=== PATIENT | male | born 1955 | race Caucasian/White ===

== ENCOUNTER → 2016-09-04 | Outpatient (CLI) | payer MEDICARE, OTHER ==
[~2016-09-04] MED LIST: ASPI1TAB72 PO; ASPI81TA2 PO; CARI350T26 PO; CEPH500T PO; CLON0.5T23 PO; CYCL-375 PO; DULO30CA52 PO; GABA-215 PO; IBUP-1547 PO; ISOS30TA6 PO; LOPE1TAB PO; NITR0.4T28 SL; OMEP40CA52 PO; ONDA4TAB4 PO; OXYC15TA50 PO; RANI150T7 PO; TAMS0.4C47 PO; TRAZ-170 PO
--- NOTE | 2016-09-04 15:21 | DI ---
Indication: [email or web address].[email or web address]: THORACIC KYPHOSOCOLIOSIS PROCEDURE: CT CERVICAL SPINE W/O CONTRAST: Encounter: Initial Comparison: MRI cervical spine dated May 25, 2015 Technique: Axial CT images through the cervical spine were performed without contrast. Coronal and sagittal reformatted images were also obtained. Automated Exposure Control and Iterative Reconstruction dose reducing techniques were utilized. FINDINGS: Extensive prior surgery with anterior and posterior C3-C7 spinal fusion with corpectomy is at C4, C5 and C6 with a probable fibular graft present. No acute fracture. No evidence of hardware loosening or failure. There is no mild levoscoliosis of the cervical spine. Metallic artifact precludes a detailed segmental analysis. There is no evidence of obvious cord compression. No obvious bony neural foraminal stenosis. Mild bony right neural foraminal narrowing at C2-C3. No gross central canal stenosis seen. Impression: Postoperative cervical spine as above. .
--- NOTE | 2016-09-04 15:41 | DI ---
Indication: [email or web address].REASON: THORACIC KYPHOSCOLIOSIS PROCEDURE: CT THORACIC SPINE W/O CONTRAST: Encounter: Initial Comparison: None: Technique: Axial noncontrast CT imaging of the thoracic spine was performed with coronal and sagittal two-dimensional reformats. Automated Exposure Control and Iterative Reconstruction dose reducing techniques were utilized. FINDINGS: Mild scoliotic curvature of the thoracic spine, less than 15 degrees. Epidural catheter is noted extending along the left side of these central canal. The vertebral body heights are maintained. There is no acute compression fracture seen. Paraspinal soft tissues are unremarkable. There is bony neural foraminal narrowing on the right at T3-T4 which appears moderate. Mild right neural foraminal narrowing also at T6-T7, T7-T8 and T8-T9. Mild right neural foraminal narrowing at T10-T11 mild left neural foraminal narrowing at T8-T9, T7-T8 and T6-T7. Impression: Scoliosis with multilevel neural foraminal stenosis. No acute fracture seen. .
--- NOTE | 2016-09-04 15:45 | DI ---
Indication: [email or web address].[email or web address]: THORACIC KYPHOSCOLIOSIS PROCEDURE: CT LUMBAR SPINE W/O CONTRAST: Encounter: Initial Comparison: None Technique: Axial noncontrast CT imaging of the lumbar spine was performed with coronal and sagittal two-dimensional reformats. Automated Exposure Control and Iterative Reconstruction dose reducing techniques were utilized. FINDINGS: The alignment of the lumbar spine shows mild scoliotic curvature, less than 15 degrees. No fractures or traumatic subluxation of the lumbar spine is evident. Epidural catheter. The paraspinal soft tissues and spinal canal are otherwise unremarkable in appearance. Moderate disk space narrowing at L3-L4. Mild disk space narrowing at L4-L5 and L5-S1. Degenerative facet disease at L4-L5 and L5-S1. Paraspinal soft tissues are remarkable for left-sided renal stones. Segmental analysis: L1-L2: Normal L2-L3: Mild disk bulging without central canal stenosis. No neural foraminal stenosis. L3-L4: No significant focal protrusion or central canal stenosis. No neural foraminal stenosis. L4-L5: Degenerative facet disease with a right central disk protrusion contributing to mild central canal narrowing. Mild to moderate bilateral neural foraminal stenosis. L5-S1: No focal disk herniation or central canal stenosis. Degenerative facet disease contributing to mild right neural foraminal narrowing. IMPRESSION: Mild scoliosis and degenerative changes as above. .
== END ==
LOC: IMA 14:09
PROVIDERS: ATTEND Orthopaedic Surgery
DX: M41.34 Thoracogenic scoliosis, thoracic region (principal); M41.9 Scoliosis, unspecified; M47.896 Other spondylosis, lumbar region; M47.897 Other spondylosis, lumbosacral region; M51.26 Other intervertebral disc displacement, lumbar region; Z98.1 Arthrodesis status